=== PATIENT | male | born 1975 | race Caucasian/White ===

== ENCOUNTER 2017-09-21 14:04 | Inpatient (IN) ==
[2017-09-21] MEDS ORDERED: Ondansetron 4 MG/2 ML VIAL IVP ONE (14:28)
[2017-09-21] MEDS ORDERED: Pantoprazole 40 MG VIAL IVP ONE (14:28)
[2017-09-21] MEDS ORDERED: 0.9 % Sodium Chloride 1,000 ML IVC ONE ×2 (14:28→17:16)
--- NOTE | 2017-09-21 14:34 | Emergency Department Note ---
Disposition Clinical Impression: Abdominal pain Qualifiers: Abdominal location: left upper quadrant Qualified Code(s): R10.12 - Left upper quadrant pain GI bleed Qualifiers: GI bleed type/associated pathology: gastritis Gastritis type: unspecified gastritis Qualified Code(s): K29.71 - Gastritis, unspecified, with bleeding Disposition: Admitted As Inpatient Condition: Fair Abdominal Pain HPI - General Chief Complaint: ED Abdominal Pain Stated Complaint: ABD Pain N/V Time Seen by Provider: 09/21/17 14:17 Source: patient Nursing Notes Reviewed: Yes Vital Signs Reviewed: Yes - History of Present Illness HPI Narrative: 42-year-old male presents emergency department vomiting blood. Patient states it started earlier today's been initially vomiting some dark purple blood but now it is turn to basically bright red. It is associated also with severe pain in the midepigastric area. Denies fevers or chills. No chest pain or shortness of breath. He is not sure about the blood in his stool he thinks they might be a little bit darker than usual. Denies medical complaints or medical treatments at this time. Pt Subjective Complaint: abdominal pain Onset (ago): [employer] Consistency: constant, intermittent Location: diffuse, periumbilical Pain Severity: severe Pain Scale: 8 Quality: stabbing Radiation: none Migration to: no migration Improves with: nothing Worsens with: eating Associated symptoms: Reports: nausea, vomiting Treatments prior to arrival: none - Related Data Home Medications Medication Instructions Recorded Confirmed No Known Home Drugs 09/21/17 09/21/17 Allergies Allergy/AdvReac Type Severity Reaction Status Date / Time No Known Allergies Allergy Verified 09/21/17 14:07 All systems ED: reviewed and negative except as stated. Constitutional: Reports: as per HPI Eyes: Reports: as per HPI ENT ED: Reports: as per HPI Cardiovascular: Reports: as per HPI Respiratory: Reports: as per HPI Gastrointestinal: Reports: as per HPI Genitourinary: Reports: as per HPI Musculoskeletal: Reports: as per HPI Abdominal Pain PMH - Past Medical History Medical history: Reports: non-contributory Male Surgical History: Reports: no surgical history Psychiatric history: Reports: no psych history - Social History Smoking status: Current every day smoker Alcohol use: Reports: heavy, recent Drug use: Reports: marijuana Physical Exam - General Limitations: no limitations General appearance: alert, in no apparent distress - Head Head exam: atraumatic - Eye Eye exam: Present: normal appearance - ENT ENT exam: normal exam - Neck Neck exam: Present: normal inspection, full ROM - Chest Chest inspection: Present: normal inspection, symmetric chest wall rise - Respiratory Respiratory exam: Present: normal lung sounds bilaterally - Cardiovascular Cardiovascular exam: Present: regular rate, normal rhythm - Abdominal Exam Abdominal exam: Present: soft, tenderness. Absent: distention, guarding, rebound Abdominal tenderness: Present: epigastrium - Male exam: Present: normal inspection - Expanded Lower Extremity Exam Hip/Pelvis exam: Present: normal inspection - Neurological Exam Neurological exam: Present: alert, oriented X3 - Psychiatric Psychiatric exam: Present: normal affect, normal mood - Skin Skin exam: Present: warm, dry, intact Course Vital Signs Temperature 98.5 F 09/21/17 14:08 Pulse Rate 124 09/21/17 14:08 Respiratory Rate 20 09/21/17 14:08 Blood Pressure 176/114 09/21/17 14:08 O2 Sat by Pulse Oximetry 96 09/21/17 14:08 Temperature 98.5 F 09/21/17 14:08 Pulse Rate 100 09/21/17 17:16 Respiratory Rate 16 09/21/17 17:16 Blood Pressure 164/99 09/21/17 17:16 O2 Sat by Pulse Oximetry 96 09/21/17 17:16 Oxygen Delivery Oxygen Delivery Room Air Abdominal Pain - MDM Narrative Medical decision making narrative: We will workup for GI bleed and treat accordingly. We will admit to the hospitalist service for additional evaluation and treatment. Bedside Hemoccult was positive but no gross blood. Patient not have any vomiting while he was in the emergency department. He was started on Protonix and a Protonix drip. Additionally he was given nausea medicine. CT scan was suggestive of peptic ulcer disease. We contacted endoscopy who agreed to evaluate the patient. Additionally we contacted the hospitalist service agreed to accept the patient for ultimate admission. He will require serial H&H's and treatment for GI bleed. We did discuss with the hospitalist service the patient's hypertension. This is long-standing patient states he knows he has hypertension but has not been treated for it and is somewhat noncompliant with medication. It was agreed not to treat it at this time in the emergency department but that would be something once his bleeding has stopped that can be addressed more formally. - Medical Records Medical records reviewed: Yes I reviewed the patient's medical records. - Lab Data Lab results reviewed: Yes I reviewed the patient's lab results. Result diagrams: 09/21/17 15:04 09/21/17 15:04 Lab Results 09/21/17 09/21/17 09/21/17 Range/Units 15:04 15:04 15:04 WBC 10.6 (4.3-11.1) K/mcL RBC 5.38 (4.19-5.50) M/mcL Hgb 18.8 H (12.9-16.9) g/dL Hct 52.7 H (37.5-50.1) % MCV 98.0 (83.0-100.0) fL MCH 34.9 H (28.0-33.3) pg MCHC 35.7 H (31.6-35.5) g/dL RDW 12.6 (11.5-14.5) % Plt Count 268 (140-400) K/mcL MPV 9.4 (9.4-12.4) fL Immature Gran % 0.4 (0-4) % Seg Neutrophils % 82.6 % Lymphocytes % 11.9 % Monocytes % 4.3 % Eosinophils % 0.0 % Basophils % 0.8 % Neutrophils # 8.8 (1.6-8.9) K/mcL Lymphocytes # 1.3 (0.6-4.6) K/mcL Monocytes # 0.5 (0.0-1.3) K/mcL Eosinophils # 0.0 (0.0-0.6) K/mcL Basophils # 0.1 (0.0-0.2) K/mcL PT (9.4-12.1) Seconds INR APTT (26.0-36.0) Seconds Sodium 133 L (136-145) mEq/L Potassium 4.5 (3.5-5.1) mEq/L Chloride 96 L (98-107) mEq/L Carbon Dioxide 25 (23-29) mEq/L BUN 8 (6-20) mg/dL Creatinine 0.73 (0.70-1.30) mg/dL Est GFR ( Amer) > 60 (> 60) Est GFR (Non-Af Amer) > 60 (> 60) BUN/Creatinine Ratio 11 (6-26) Glucose 123 H (70-105) mg/dL Calculated Osmolality 276 L (280-300) Lactic Acid 2.0 (0.5-2.2) mmol/L Calcium 10.5 H (8.6-10.3) mg/dL Total Bilirubin 1.0 (0.3-1.0) mg/dL Direct Bilirubin 0.3 H (0.0-0.2) mg/dL Indirect Bilirubin 0.7 (0.0-1.2) mg/dL AST 120 H (13-39) Units/L ALT 63 H (7-52) Units/L Alkaline Phosphatase 101 (34-104) Units/L Troponin I < 0.03 (< 0.04) ng/mL Serum Total Protein 8.4 (6.4-8.9) g/dL Albumin 5.0 (3.5-5.7) g/dL Globulin 3.4 (2.4-3.5) g/dL Albumin/Globulin Ratio 1.5 (1.1-2.2) Amylase 47 (29-103) Units/L Lipase 79 (11-82) Units/L Urine Color (Yellow) Urine Clarity (Clear) Urine pH (5.0-8.0) pH Units Ur Specific [place] (1.010-1.025) Urine Protein (Neg-Trace) mg/dL Urine Glucose (UA) (Normal) mg/dL Urine Ketones (Negative) mg/dL Urine Blood (Negative) Urine Nitrite (Negative) Urine Bilirubin (Negative) Urine Urobilinogen (Normal) mg/dL Ur Leukocyte Esterase (Negative) Urine Microscopic RBC (0-3) per hpf Urine Microscopic WBC (0-3) per hpf Ur Squamous Epith Cells (None-Few) per lpf Urine Bacteria (None-Few) per hpf Hyaline Casts (None-Few) per lpf Ur Culture Indicated? (NO) Urine Opiates Screen (Spolhq=554) ng/mL Ur Barbiturates Screen (Btxqfj=817) ng/mL Ur Phencyclidine Scrn (Cutoff=25) ng/mL Ur Amphetamines Screen (Viaejs=1613) ng/mL U Benzodiazepines Scrn (Mokfiq=546) ng/mL Urine Cocaine Screen (Cutoff= 300) ng/mL U Marijuana (THC) Screen (Cutoff = 50) ng/mL Specimen Rejected Blood Type Antibody Screen 09/21/17 09/21/17 09/21/17 Range/Units 15:13 15:20 15:29 WBC (4.3-11.1) K/mcL RBC (4.19-5.50) M/mcL Hgb (12.9-16.9) g/dL Hct (37.5-50.1) % MCV (83.0-100.0) fL MCH (28.0-33.3) pg MCHC (31.6-35.5) g/dL RDW (11.5-14.5) % Plt Count (140-400) K/mcL MPV (9.4-12.4) fL Immature Gran % (0-4) % Seg Neutrophils % % Lymphocytes % % Monocytes % % Eosinophils % % Basophils % % Neutrophils # (1.6-8.9) K/mcL Lymphocytes # (0.6-4.6) K/mcL Monocytes # (0.0-1.3) K/mcL Eosinophils # (0.0-0.6) K/mcL Basophils # (0.0-0.2) K/mcL PT 11.6 (9.4-12.1) Seconds INR 1.1 APTT 33.6 (26.0-36.0) Seconds Sodium (136-145) mEq/L Potassium (3.5-5.1) mEq/L Chloride (98-107) mEq/L Carbon Dioxide (23-29) mEq/L BUN (6-20) mg/dL Creatinine (0.70-1.30) mg/dL Est GFR ( Amer) (> 60) Est GFR (Non-Af Amer) (> 60) BUN/Creatinine Ratio (6-26) Glucose (70-105) mg/dL Calculated Osmolality (280-300) Lactic Acid (0.5-2.2) mmol/L Calcium (8.6-10.3) mg/dL Total Bilirubin (0.3-1.0) mg/dL Direct Bilirubin (0.0-0.2) mg/dL Indirect Bilirubin (0.0-1.2) mg/dL AST (13-39) Units/L ALT (7-52) Units/L Alkaline Phosphatase (34-104) Units/L Troponin I (< 0.04) ng/mL Serum Total Protein (6.4-8.9) g/dL Albumin (3.5-5.7) g/dL Globulin (2.4-3.5) g/dL Albumin/Globulin Ratio (1.1-2.2) Amylase (29-103) Units/L Lipase (11-82) Units/L Urine Color (Yellow) Urine Clarity (Clear) Urine pH (5.0-8.0) pH Units Ur Specific [place] (1.010-1.025) Urine Protein (Neg-Trace) mg/dL Urine Glucose (UA) (Normal) mg/dL Urine Ketones (Negative) mg/dL Urine Blood (Negative) Urine Nitrite (Negative) Urine Bilirubin (Negative) Urine Urobilinogen (Normal) mg/dL Ur Leukocyte Esterase (Negative) Urine Microscopic RBC (0-3) per hpf Urine Microscopic WBC (0-3) per hpf Ur Squamous Epith Cells (None-Few) per lpf Urine Bacteria (None-Few) per hpf Hyaline Casts (None-Few) per lpf Ur Culture Indicated? (NO) Urine Opiates Screen (Zrixvb=302) ng/mL Ur Barbiturates Screen (Mabtcr=622) ng/mL Ur Phencyclidine Scrn (Cutoff=25) ng/mL Ur Amphetamines Screen (Qssiqq=5826) ng/mL U Benzodiazepines Scrn (Trypeg=685) ng/mL Urine Cocaine Screen (Cutoff= 300) ng/mL U Marijuana (THC) Screen (Cutoff = 50) ng/mL Specimen Rejected Volume Blood Type A POSITIVE Antibody Screen NEGATIVE 09/21/17 09/21/17 Range/Units 15:43 15:43 WBC (4.3-11.1) K/mcL RBC (4.19-5.50) M/mcL Hgb (12.9-16.9) g/dL Hct (37.5-50.1) % MCV (83.0-100.0) fL MCH (28.0-33.3) pg MCHC (31.6-35.5) g/dL RDW (11.5-14.5) % Plt Count (140-400) K/mcL MPV (9.4-12.4) fL Immature Gran % (0-4) % Seg Neutrophils % % Lymphocytes % % Monocytes % % Eosinophils % % Basophils % % Neutrophils # (1.6-8.9) K/mcL Lymphocytes # (0.6-4.6) K/mcL Monocytes # (0.0-1.3) K/mcL Eosinophils # (0.0-0.6) K/mcL Basophils # (0.0-0.2) K/mcL PT (9.4-12.1) Seconds INR APTT (26.0-36.0) Seconds Sodium (136-145) mEq/L Potassium (3.5-5.1) mEq/L Chloride (98-107) mEq/L Carbon Dioxide (23-29) mEq/L BUN (6-20) mg/dL Creatinine (0.70-1.30) mg/dL Est GFR ( Amer) (> 60) Est GFR (Non-Af Amer) (> 60) BUN/Creatinine Ratio (6-26) Glucose (70-105) mg/dL Calculated Osmolality (280-300) Lactic Acid (0.5-2.2) mmol/L Calcium (8.6-10.3) mg/dL Total Bilirubin (0.3-1.0) mg/dL Direct Bilirubin (0.0-0.2) mg/dL Indirect Bilirubin (0.0-1.2) mg/dL AST (13-39) Units/L ALT (7-52) Units/L Alkaline Phosphatase (34-104) Units/L Troponin I (< 0.04) ng/mL Serum Total Protein (6.4-8.9) g/dL Albumin (3.5-5.7) g/dL Globulin (2.4-3.5) g/dL Albumin/Globulin Ratio (1.1-2.2) Amylase (29-103) Units/L Lipase (11-82) Units/L Urine Color Dark Yellow (Yellow) Urine Clarity Clear (Clear) Urine pH 6.5 (5.0-8.0) pH Units Ur Specific [place] 1.023 (1.010-1.025) Urine Protein 30 H (Neg-Trace) mg/dL Urine Glucose (UA) Normal (Normal) mg/dL Urine Ketones 40 H (Negative) mg/dL Urine Blood Negative (Negative) Urine Nitrite Negative (Negative) Urine Bilirubin Small H (Negative) Urine Urobilinogen Normal (Normal) mg/dL Ur Leukocyte Esterase Negative (Negative) Urine Microscopic RBC 3-5 H (0-3) per hpf Urine Microscopic WBC 0-3 (0-3) per hpf Ur Squamous Epith Cells Moderate H (None-Few) per lpf Urine Bacteria None Seen (None-Few) per hpf Hyaline Casts None Seen (None-Few) per lpf Ur Culture Indicated? NO (NO) Urine Opiates Screen Negative (Ifnhzw=678) ng/mL Ur Barbiturates Screen Negative (Qqaosx=918) ng/mL Ur Phencyclidine Scrn Negative (Cutoff=25) ng/mL Ur Amphetamines Screen Negative (Rlujec=8649) ng/mL U Benzodiazepines Scrn Negative (Btlcjq=788) ng/mL Urine Cocaine Screen Negative (Cutoff= 300) ng/mL U Marijuana (THC) Screen Positive H (Cutoff = 50) ng/mL Specimen Rejected Blood Type Antibody Screen - Radiology Data Radiology results reviewed: Yes I reviewed the patient's radiology results. CT scan of the abdomen was consistent with peptic ulcer disease. There is no free air in the abdomen. Critical Care Time Critical Care Time: Yes Total Critical Care Time: 35 Attestation: 35 minutes managing patient's acute GI bleed and hypertension.
[2017-09-21] MEDS ORDERED: *HR* FentaNYL (PF) 100 MCG/2 ML VIAL IVP ONE (14:35)
[2017-09-21 15:16] LABS: Basophils # 0.1 K/mcL (0.0-0.2); Basophils % 0.8 %; Hematocrit 52.7 % (37.5-50.1); Hemoglobin 18.8 g/dL (12.9-16.9); Immature Granulocytes % 0.4 % (0-4); Lymphocytes # 1.3 K/mcL (0.6-4.6); Lymphocytes % 11.9 %; Mean Corpuscular HGB Conc 35.7 g/dL (31.6-35.5); Mean Corpuscular Hemoglobin 34.9 pg (28.0-33.3); Mean Platelet Volume 9.4 fL (9.4-12.4); Monocytes # 0.5 K/mcL (0.0-1.3); Monocytes % 4.3 %; Neutrophils # 8.8 K/mcL (1.6-8.9); Platelet Count 268 K/mcL (140-400); Red Blood Count 5.38 M/mcL (4.19-5.50); Red Cell Distribution Width 12.6 % (11.5-14.5); Segmented Neutrophils % 82.6 %
[2017-09-21 15:47] LABS: INR 1.1; Prothrombin Time 11.6 Seconds (9.4-12.1)
[2017-09-21 15:48] LABS: Alanine Aminotransferase 63 Units/L (7-52); Albumin/Globulin Ratio 1.5 (1.1-2.2); Alkaline Phosphatase 101 Units/L (34-104); Amylase 47 Units/L (29-103); Aspartate Amino Transferase 120 Units/L (13-39); BUN/Creatinine Ratio 11 (6-26); Bilirubin,Direct 0.3 mg/dL (0.0-0.2); Bilirubin,Indirect 0.7 mg/dL (0.0-1.2); Blood Urea Nitrogen 8 mg/dL (6-20); Calcium 10.5 mg/dL (8.6-10.3); Carbon Dioxide 25 mEq/L (23-29); Chloride 96 mEq/L (98-107); Globulin 3.4 g/dL (2.4-3.5); Glucose 123 mg/dL (70-105); Lipase 79 Units/L (11-82); Osmolality,Calculated 276 (280-300); Potassium 4.5 mEq/L (3.5-5.1); Sodium 133 mEq/L (136-145); Total Protein 8.4 g/dL (6.4-8.9); Troponin I < 0.03 ng/mL (< 0.04); eGFR For African Americans > 60 (> 60); eGFR For Non-African Americans > 60 (> 60)
[2017-09-21 15:50] LABS: Activated Partial Thrombo Time 33.6 Seconds (26.0-36.0)
[2017-09-21 15:51] LABS: Bilirubin,Urine Small (Negative); Blood,Urine Negative (Negative); Clarity,Urine Clear (Clear); Color,Urine Dark Yellow (Yellow); Glucose,Urine (UA) Normal (Normal); Ketones,Urine 40 mg/dL (Negative); Leukocyte Esterase,Urine Negative (Negative); Nitrite,Urine Negative (Negative); PH,Urine 6.5 pH Units (5.0-8.0); Protein,Urine 30 mg/dL (Neg-Trace); Specific Gravity,Urine 1.023 (1.010-1.025); Urobilinogen,Urine Normal (Normal)
[2017-09-21 15:54] LABS: Bacteria,Urine None Seen per hpf (None-Few); Hyaline Casts,Urine None Seen per lpf (None-Few); Squamous Epithelial Cell,Urine Moderate per lpf (None-Few); WBC,Urine 0-3 per hpf (0-3)
[2017-09-21 16:13] LABS: Amphetamine Screen,Urine Negative ng/mL (Cutoff=1000); Barbiturate Screen,Urine Negative ng/mL (Cutoff=200); Benzodiazepines Screen,Urine Negative ng/mL (Cutoff=200); Cannabinoid Screen,Urine Positive ng/mL (Cutoff = 50); Cocaine Screen,Urine Negative ng/mL (Cutoff= 300); Opiate Screen,Urine Negative ng/mL (Cutoff=300); Phencyclidine Screen,Urine Negative ng/mL (Cutoff=25)
[2017-09-21] MEDS: Pantoprazole 40 MG in 0.9 % Sodium Chloride Mini Bag 100 ML IVC SCH (19:24)
[2017-09-21] MEDS ORDERED: Ondansetron 4 MG/2 ML VIAL IVP PRN (19:26)
[2017-09-21] MEDS ORDERED: Acetaminophen 325 MG TABLET PO PRN (19:28)
[2017-09-21] MEDS ORDERED: Naloxone 0.4 MG/ML INJ IVP PRN (19:28)
[2017-09-21] MEDS ORDERED: *HR* LORazepam 2 MG/ML VIAL IVP PRN ×3 (19:46)
--- NOTE | 2017-09-21 19:51 | Internal Med History&Physical ---
Date of Encounter: 09/21/17 Time of Encounter: 19:47 Internal Medicine - H&P: HPI Chief complaint: GI bleed Admitted From: Emergency Dept Plans for Post Hospital Care: Home History of present illness: Mr. Mandujano is a 42 year old male with history of alcohol abuse who drinks 12 pack on a daily basis for the last 18 years, tobacco abuse who presents to the ED with complaints of hematemesis. He says it started this morning after he drank alcohol. He had 3 beers with the last being at 9 AM. After that he suddenly started vomiting dark blood. Later that he had about 5 more episodes of this and it became bright red blood. Denies bloody stools. Says he has some epigastric abdominal pain. He has not taken any aspirin or other NSAIDs. The patient never had a GI bleed in the past. Denies fever, chills, nausea, chest pain, shortness of breath, urinary symptoms, neurological symptoms, constipation , diarrhea. When he presented to the ED he was noted to be tachycardic and hypertensive. He says he has had alcohol withdrawals in the past. The patient' s hemoglobin was 18ish. Otherwise labs were mostly unremarkable for AST and ALT elevation. INR 1.1 and normal platelets. Past Med Surg Social Fam HX - Past Medical History Medical history: no medical history Psychiatric history: no psych history - Past Surgical History Surgical History: no surgical history - Social History Smoking Status: Current every day smoker Smokeless Tobacco Status: No Alcohol use: heavy, recent Drug use: marijuana Internal Medicine - H&P: Meds No Known Home Drugs 09/21/17 [History] 3 Allergy/AdvReac Type Severity Reaction Status Date / Time No Known Allergies Allergy Verified 09/21/17 14:07 All Systems PM: A 10-system review of systems was performed and is negative for pertinent findings except as documented above in the HPI. Review of systems: All systems reviewed and negative except for as mentioned above - Constitutional Vitals: Temp Pulse Resp BP Pulse Ox 98.6 F 92 15 179/96 96 09/21/17 18:15 09/21/17 18:15 09/21/17 18:15 09/21/17 18:15 09/21/17 18:15 Exam: GEN: , patient is anxious, he is jittery he is withdrawing from alcohol HEENT: AT, NC, No cyanosis, oral mucosa is moist, No JVD Lymphatics: No lymphadenoapthy Eyes: Extrocular muscles intact, anicteric CVS: Tachycardic. S1, S2, No m/r/g RESP: CTAB ABD: Soft, NT, ND, +BS EXT: No edema, No rashes, 2+ DP NEURO: Nonfocal, CN II-XII intact, No focal motor or sensory deficits Psych: Cooperative, Not anxious or depressed Internal Med - H&P Results - Labs CBC & Chem 7: 09/21/17 15:04 09/21/17 15:04 - Assessment and plan (1) GI bleed Current Visit: Yes Status: Acute Assessment and plan: Likely upper GI bleed. Possibly related to his alcohol use. They mentioned a possible ulcer on the CT abdomen and pelvis. We will make patient nothing by mouth. Protonix drip. Serial H&H. IV fluids. Surgery has been consulted from the ED. Antiemetics. Pain control. Qualifiers: GI bleed type/associated pathology: gastritis Gastritis type: unspecified gastritis Qualified Code(s): K29.71 - Gastritis, unspecified, with bleeding (2) Tobacco abuse Current Visit: Yes Status: Acute Assessment and plan: Nicotine patch (3) Alcohol withdrawal Current Visit: Yes Status: Acute Assessment and plan: We will put the patient on serial protocol. We will start banana bag. Telemetry. Qualifiers: Complication of substance-induced condition: with unspecified complication Qualified Code(s): F10.239 - Alcohol dependence with withdrawal, unspecified (4) DVT prophylaxis Current Visit: Yes Status: Acute Assessment and plan: SCDs - Time Spent With Patient Total time spent is greater than 50% in coordination of care (as documented) at patient's floor/unit and/or counseling patient:
[2017-09-21 20:08] LABS: Hemoglobin 16.6 g/dL (12.9-16.9)
[2017-09-21] MEDS: Nicotine 21 MG PATCH.TD24 TD SCH (20:41)
[2017-09-21] MEDS: 0.9 % Sodium Chloride 1,000 ML IVC SCH (20:42)
[2017-09-21] MEDS ORDERED: Thiamine (B-1) 100 MG, Folic Acid 1 MG, MVI, adult with vitamin K 10 ML in 0.9 % Sodi... IVPB SCH (20:45)
--- NOTE | 2017-09-21 21:49 | Internal Medicine Consult Note ---
Date of Encounter: 09/21/17 Time of Encounter: 20:45 - Assessment and Plan (1) Hematemesis Current Visit: Yes Status: Acute Assessment and plan: The blood loss has not been significant, etiologies to include gastritis, or even esophagitis, variceal bleeding is much less likely. Duodenal ulcer also to be considered given what may be abnormal CAT scan in this area. He currently is receiving PPI therapy, I have recommended upper endoscopy, he has consented. Risks and benefits of the procedure have been discussed. Qualifiers: Qualified Code(s): K92.0 - Hematemesis (2) Alcoholic hepatitis Current Visit: Yes Status: Acute Assessment and plan: This Some of his epigastric pain Qualifiers: Qualified Code(s): K70.10 - Alcoholic hepatitis without ascites (3) Alcohol withdrawal Current Visit: Yes Status: Acute Assessment and plan: He is currently mentating fine, but is starting to shake some. He is on CWAL protocol. Qualifiers: Complication of substance-induced condition: with unspecified complication Qualified Code(s): F10.239 - Alcohol dependence with withdrawal, unspecified (4) Tobacco abuse Current Visit: Yes Status: Chronic Internal Medicine - CN: HPI - Data of Consult Patient: new to practice Consult date: 09/21/17 Requesting Physician: Carlos Jain MD - Consult Narrative Reason for consult: Hematemesis History of present illness: Mr. Mandujano is a 42 year old male presented to the hospital today with a bout of hematemesis. I was asked to consult at the request of the hospitalist service. For what may be upper GI bleeding. This gentleman admits roughly 1 week ago having one bout of streaky emesis with minimal upper abdominal pain. This lasted about 12 hours and subsided. Then in the last 12 hours had 3 episodes where again he had moderate epigastric pain and an subsequent mild to moderate bloody emesis. He admits to really not retching or having significant forceful emesis. No nonsteroidal use. No previous history of ulcer. He does admit having 12 beers per day and admits being an alcoholic. No prior GI bleeding, no prior EGD. His pain is not that significant at this time, he appears pretty stable, he does admit having some tremors of the upper extremities at this time. Should be noted that his hemoglobin is stable area Past Med Surg Social Fam HX - Past Medical History Medical history: other (Alcohol abuse) Psychiatric history: no psych history - Past Surgical History Surgical History: no surgical history - Social History Smoking Status: Current every day smoker Smokeless Tobacco Status: No Alcohol use: heavy, recent Drug use: marijuana - Family History Mother Adopted: No Race: Living Status: Still Living Hx Family Cardiac Disorders: Yes (Hypertension) - Constitutional Constitutional: no anorexia, no chills, no fatigue, no falls, no night sweats, no weight loss - Cardiovascular Cardiovascular ROS IM: no chest pain, no diaphoresis, no dyspnea, no palpitations - Respiratory Respiratory: no cough, no dyspnea - Gastrointestinal Gastrointestinal: abdominal pain, hematemesis, nausea, vomiting, no diarrhea, no hematochezia, no melena - Neurological Neurological ROS: tremor(s), no convulsions Additional comments: No prior history of delirium tremens that I can tell Internal Medicine - CN: Meds No Known Home Drugs 09/21/17 [History] 3 Allergy/AdvReac Type Severity Reaction Status Date / Time No Known Allergies Allergy Verified 09/21/17 14:07 Internal Medicine - CN: Exam - Constitutional Vitals: Temp Pulse Resp BP Pulse Ox 98.6 F 92 15 179/96 96 09/21/17 18:15 09/21/17 18:15 09/21/17 18:15 09/21/17 18:15 09/21/17 18:15 General appearance IM: Present: cachectic, cooperative, A&O X 3, pleasant, no acute distress, answers questions appropriately - Head Head exam: Present: atraumatic, normal inspection Additional comments: Facial plethora noted - Eye Eye exam: Present: PERRL, conjuntiva pink, sclera anicteric Pupils: Present: mydriatic - Neck Neck exam general surgery: Present: full ROM, supple, trachea midline - Respiratory Respiratory exam: Present: CTAB. Absent: respiratory distress, wheezes, tachypnea - Cardiovascular Cardiovascular exam IM: Present: RRR, +S1, +S2. Absent: JVD - GI/Abdominal GI/Abdominal exam IM: Present: normal bowel sounds, soft, no peritoneal signs. Absent: mass, rebound, rigid, splenomegaly - Rectal Rectal exam: Present: deferred Internal Medicine - CN: Reslt - Labs CBC & Chem 7: 09/21/17 19:41 09/21/17 15:04 Labs: Short CBC 09/21/17 Range/Units 19:41 Hgb 16.6 D (12.9-16.9) g/dL Hct 48.0 (37.5-50.1) % - ABG Interpretation ABG results: PT/INR, D-dimer PT 11.6 Seconds (9.4-12.1) 09/21/17 15:29 Consult Discharge Plan - Plan Referrals: NONE,PCP [Primary Care Provider] - [facility] [Family Provider] -
[2017-09-22] MEDS: Pantoprazole 40 MG in 0.9 % Sodium Chloride Mini Bag 100 ML IVC SCH (05:31)
[2017-09-22 05:36] LABS: Basophils # 0.1 K/mcL (0.0-0.2); Basophils % 0.8 %; Eosinophils # 0.1 K/mcL (0.0-0.6); Eosinophils % 0.9 %; Hematocrit 48.1 % (37.5-50.1); Hematocrit 48.5 % (37.5-50.1); Hemoglobin 16.3 g/dL (12.9-16.9); Hemoglobin 16.4 g/dL (12.9-16.9); Immature Granulocytes % 0.3 % (0-4); Lymphocytes # 1.8 K/mcL (0.6-4.6); Mean Corpuscular HGB Conc 33.9 g/dL (31.6-35.5); Mean Corpuscular Hemoglobin 34.6 pg (28.0-33.3); Mean Corpuscular Volume 102.1 fL (83.0-100.0); Mean Platelet Volume 9.7 fL (9.4-12.4); Monocytes # 0.6 K/mcL (0.0-1.3); Neutrophils # 5.1 K/mcL (1.6-8.9); Platelet Count 247 K/mcL (140-400); Red Blood Count 4.71 M/mcL (4.19-5.50); Red Cell Distribution Width 12.8 % (11.5-14.5)
[2017-09-22 05:54] LABS: BUN/Creatinine Ratio 11 (6-26); Blood Urea Nitrogen 7 mg/dL (6-20); Calcium 9.1 mg/dL (8.6-10.3); Carbon Dioxide 31 mEq/L (23-29); Chloride 105 mEq/L (98-107); Glucose 94 mg/dL (70-105); Osmolality,Calculated 280 (280-300); Sodium 136 mEq/L (136-145); eGFR For African Americans > 60 (> 60); eGFR For Non-African Americans > 60 (> 60)
[2017-09-22] MEDS: 0.9 % Sodium Chloride 1,000 ML IVC SCH (06:30)
[2017-09-22] MEDS: Nicotine 21 MG PATCH.TD24 TD SCH (07:51)
[2017-09-22] MEDS ORDERED: *HR* Midazolam HCl 5 MG/5 ML VIAL IVP ONE (10:40)
[2017-09-22] MEDS ORDERED: *HR* FentaNYL (PF) 100 MCG/2 ML VIAL ONE (10:40)
[2017-09-22] MEDS ORDERED: Tetracaine/Benzocaine/Butamben 200MG/SPRAY (100SPY/BOT) MM ONE (10:49)
[2017-09-22] MEDS ORDERED: Simethicone 40 MG/0.6 ML MLS IR ONE (10:49)
--- NOTE | 2017-09-22 10:51 | Pre-Sedation Evaluation ---
Pre-sedation evaluation - Pre-sedation checklist Date of procedure: 09/22/17 Procedure: EGD Recent Vitals: Last Vital Signs Temp 98.1 F 09/22/17 07:16 Pulse 88 09/22/17 07:16 Resp 18 09/22/17 07:16 BP 184/103 09/22/17 07:16 Pulse Ox 98 09/22/17 07:16 H&P (including ROS) documented in medical record: Yes Previous reaction to sedatives/anesthetics: No Dietary Status: NPO 6 hours prior to procedure Airway Assessment: Patient can open mouth completely, TMJ function normal Possible difficult airway: No ASA Classification *see protocol: CLASS II-Mild systemic disease
[2017-09-22] MEDS: *HR* FentaNYL (PF) 100 MCG/2 ML VIAL IVP ONE ×2 (10:55→10:58)
[2017-09-22] MEDS: *HR* Midazolam HCl 5 MG/5 ML VIAL IVP ONE ×2 (10:55→10:58)
--- NOTE | 2017-09-22 11:10 | Event Note ---
Date of Encounter: 09/22/17 Time of Encounter: 11:08 EGD 1. Normal Esophagus. 2. Normal Stomach, mild diffuse erythema 3. Normal Duodenum No blood seen. Can be DC'd with PPI or H2 antagonist. Reinforced Alcohol abstinence
[2017-09-22 11:28] VITALS: BP 154/98
[2017-09-22 11:41] LABS: Hemoglobin 16.2 g/dL (12.9-16.9)
[2017-09-22] MEDS ORDERED: amLODIPine 5 MG TABLET PO SCH (11:45)
--- NOTE | 2017-09-22 11:45 | Discharge Summary ---
<Christel Pierce - Last Filed: 09/22/17 13:27> Date of Encounter: 09/22/17 Time of Encounter: 11:44 - Discharge Diagnosis (1) GI bleed Priority: Primary Status: Acute Comments: Ruled out. Diagnosis of gastritis EGD today demonstrated normal esophagus, normal stomach with mild diffuse erythema, normal duodenum Qualifiers: GI bleed type/associated pathology: gastritis Gastritis type: unspecified gastritis Qualified Code(s): K29.71 - Gastritis, unspecified, with bleeding (2) Alcohol withdrawal Priority: Secondary Status: Acute Qualifiers: Complication of substance-induced condition: with unspecified complication Qualified Code(s): F10.239 - Alcohol dependence with withdrawal, unspecified (3) Tobacco abuse Priority: Secondary Status: Chronic (4) Alcoholic hepatitis Priority: Secondary Status: Acute Qualifiers: Qualified Code(s): K70.10 - Alcoholic hepatitis without ascites Hospital course: Mr. Mandujano is a 42 year old male with history of alcohol abuse who drinks 12 pack on a daily basis for the last 18 years, tobacco abuse who presents to the ED with complaints of hematemesis. He says it started this morning after he drank alcohol. He had 3 beers with the last being at 9 AM. After that he suddenly started vomiting dark blood. Later that he had about 5 more episodes of this and it became bright red blood. Denies bloody stools. Says he has some epigastric abdominal pain. He has not taken any aspirin or other NSAIDs. The patient never had a GI bleed in the past. Denies fever, chills, nausea, chest pain, shortness of breath, urinary symptoms, neurological symptoms, constipation , diarrhea. When he presented to the ED he was noted to be tachycardic and hypertensive. He says he has had alcohol withdrawals in the past. The patient' s hemoglobin was 18ish. Otherwise labs were mostly unremarkable for AST and ALT elevation. INR 1.1 and normal platelets. He was then admitted for concerns of possible upper G.I. bleed. Abdominal CT demonstrated nonspecific thickening consistent with peptic ulcer disease, diffuse hepatic steatosis. A physician who performs EGD/colonoscopy was consulted. The patient was started on Protonix drip, CIWA protocol. He was taken for an EGD that demonstrated normal esophagus, normal stomach with mild diffuse erythema, normal duodenum. His hemoglobin remains stable, no hematemesis or other vomiting. The hematemesis was most likely from gastritis. He was counseled on alcohol cessation sentences is likely contributing to his abdominal pain. He is also counting on smoking cessation and marijuana cessation. He was given prescriptions for omeprazole, thymine, folate, multivitamin. He was also prescribed amlodipine due to elevated blood pressure throughout his stay and he stated that he has been diagnosed with hypertension in the past and his not taking anything for it. He is alert and oriented times 3 with full capacity and stated a clear understanding of the treatment plan. Discharge discussed with: patient Time spent discussing smoking cessation with patient: more than 10 minutes - Time Spent with Patient Total time spent providing and/or coordinating discharge services: Greater than 30 minutes Specific discharge activities: Take omeprazole every single day. Take vitamins every day. follow-up with your primary care physician in 1 to 2 weeks. important to quit smoking and to stop drinking alcohol - Discharge Medications Prescriptions: amLODIPine [Norvasc] 5 mg PO DAILY #30 tablet Folic Acid 0.4 mg PO DAILY #30 tablet Multivitamin [Multivitamins] 1 each PO DAILY #30 capsule Omeprazole 20 mg PO DAILY #30 tablet. Thiamine (B-1) [Vitamin B-1] 100 mg PO DAILY #30 tablet Home Medications: Folic Acid 0.4 mg PO DAILY #30 tablet 09/22/17 [Rx] Multivitamin [Multivitamins] 1 each PO DAILY #30 capsule 09/22/17 [Rx] Omeprazole 20 mg PO DAILY #30 tablet. 09/22/17 [Rx] Thiamine (B-1) [Vitamin B-1] 100 mg PO DAILY #30 tablet 09/22/17 [Rx] amLODIPine [Norvasc] 5 mg PO DAILY #30 tablet 09/22/17 [Rx] Allergies/Adverse Reactions: 3 Allergy/AdvReac Type Severity Reaction Status Date / Time No Known Allergies Allergy Verified 09/21/17 14:07 Date of admission: 09/21/17 19:28 Primary care physician: PCP NONE Consults: 09/22/17 11:03 Consult to Telephone Station Installer [CONS] Routine Reason for SW Consult: hx alcohol abuse Discharging clinician: Carlos Jain Anticipated date of discharge: 09/22/17 - Constitutional Vitals: Temp Pulse Resp BP Pulse Ox 98.2 F 78 18 154/98 97 09/22/17 11:25 04/09/18 11:25 09/22/17 11:25 09/22/17 11:25 09/22/17 11:25 General appearance: Present: cachectic, cooperative, A&O X 3, pleasant, no acute distress, answers questions appropriately Exam: Gen.: Vitals noted. No acute distress. AAOx3 HEENT: oropharynx clear, Normocephalic, atraumatic Neck: Supple. No adenopathy. Cardiac: RRR, no murmur, +S1/S2 Pulmonary: CTA bilaterally, no wheezes, rales or rhonchi, equal chest expansion Abdomen: soft, nontender, Bowel sounds noted, no guarding Extremities: no BLE edema, nontender calf, no cyanosis or clubbing Neuro: A&Ox3, moves all extremities, no focal deficits Psych: Appropriate mood and behavior - Patient Status Disposition: Home, Self-Care Condition: Fair Functional capacity at discharge: independent ambulation Overall status at discharge: patient is back to baseline - Discharge Instructions Follow Up With: NONE,PCP [Primary Care Provider] - Chaparro Hercules [Family Provider] - Additional Instructions: Take omeprazole every single day. Take the vitamins every day follow-up with your primary care physician in 1 to 2 weeks important to quit smoking and to stop drinking alcohol - Diet and Activity Activity: resume usual activities as tolerated Diet: advance to your usual diet <Carlos Jain - Last Filed: 09/22/17 13:58> - NOTES TO OUTPATIENT PROVIDER Notes to Outpatient Provider: Establish PCP Date of Encounter: 09/22/17 - Discharge Diagnosis (1) Alcohol withdrawal Status: Acute Qualifiers: Complication of substance-induced condition: with unspecified complication Qualified Code(s): F10.239 - Alcohol dependence with withdrawal, unspecified (2) Tobacco abuse Status: Chronic (3) Hematemesis Status: Acute Qualifiers: Qualified Code(s): K92.0 - Hematemesis (4) Alcoholic hepatitis Status: Acute Qualifiers: Qualified Code(s): K70.10 - Alcoholic hepatitis without ascites Hospital course: Mr. Mandujano is a 42 year old male - Time Spent with Patient Total time spent providing and/or coordinating discharge services: Date of admission: 09/21/17 19:28 Primary care physician: PCP NONE Consults: 09/22/17 11:03 Consult to Telephone Station Installer [CONS] Routine Reason for SW Consult: hx alcohol abuse - Constitutional Vitals: Temp Pulse Resp BP Pulse Ox 98.2 F 78 18 154/98 97 09/22/17 11:25 09/22/17 11:25 09/22/17 11:25 09/22/17 11:25 09/22/17 11:25 - Attending Attestation Seen and examined independently with mother and brother at the bedside Heavy alcohol use, patient with >10 beer consumptions daily, admitted due to complains of hematemesis Work up is negative EGD is negative Educated extensively on need for cessation, denies need for help, counselled on need for compliance with antihypertensives Safe to discharge home eith family and T/F/M, as well as [facility]
--- NOTE | 2017-09-24 | Electrocardiograph Report ---
[place] [id number] Test Date: 2017-09-22 Pat Name: Axel Mandujano Department: 115 Room: 3A46 Gender: M [employer]able [employer] Worker: : 1975 Requested By: Shakeel Blair Order Number: [id number] Reading MD: Chanelle Do Measurements Intervals [place] Rate: 85 P: 58 VA: 144 QRS: 58 QRSD: 96 T: 57 QT: 383 QTc: 425 Interpretive Statements SINUS RHYTHM POSSIBLE RIGHT VENTRICULAR CONDUCTION DELAY Electronically Signed On 09-23-2017 23:58:52 EDT by Chanelle Do
== END 2017-09-22 15:09 | disposition home or self-care (01) | DRG 378 ==
LOC: 3ANU 14:04 → EMEROO 14:04 → 3ANU 18:08
PROVIDERS: ADMIT Internal Medicine; ATTEND Internal Medicine